=== PATIENT | female | born 1995 | race Caucasian/White ===

== ENCOUNTER 2017-12-20 22:50 | Emergency (ER) | payer SELFPAY ==
--- NOTE | 2017-12-20 23:04 | ER Report ---
History and Physical Time Seen By MD: 22:59 HPI/ROS CHIEF COMPLAINT: Fall downstairs, left wrist pain HISTORY OF PRESENT ILLNESS: 22-year-old female presents ambulatory to the ER complaining of severe left wrist pain. She states she fell forward down approximately 7 concrete stairs. She broke most of her fall with her left hand. She didn't impact her head. She denies LOC or neck pain. There is no facial trauma or bruising noted. Patient denies vomiting or headache. Patient notes some scrapes to her lower legs. She denies chest, abdomen or pelvic injury. She notes 9/10 throbbing pain in her left wrist aggravated by movement. REVIEW OF SYSTEMS: Respiratory: No cough, no dyspnea. Cardiovascular: No chest pain, no palpitations. Gastrointestinal: No vomiting, no abdominal pain. Musculoskeletal: As above Allergies: Coded Allergies: No Known Drug Allergies (Unverified , 12/20/17) Home Meds Active Scripts Hydrocodone Bit/Acetaminophen (NORCO 5-325 TABLET) 1 Each Tablet, 1-2 EACH PO Q4H Y for PAIN, #20 TAB Prov:RAEGAN EVANS DO 12/20/17 Reported Medications Loratadine (LORATADINE) 10 Mg Tab.rapdis, 10 MG PO 12/20/17 Omeprazole Magnesium (PRILOSEC OTC) 20 Mg Tablet., 1 TAB PO BID, TAB 12/20/17 Reviewed Nurses Notes: Yes Old Medical Records Reviewed: Yes Constitutional Vital Sign - Last 24 Hours 12/20/17 12/20/17 12/20/17 12/20/17 22:55 22:56 23:00 23:30 Temp 98.7 Pulse 108 Resp 18 B/P (MAP) 126/86 (99) 126/86 129/83 (98) 133/88 (103) Pulse Ox 98 O2 Delivery Room Air 12/21/17 00:00 B/P (MAP) 131/91 (104) Physical Exam General Appearance: The patient is alert, has no immediate need for airway protection and no current signs of toxicity. Palpation of the head and neck reveal no tenderness or trauma Eyes: Pupils equal and round no injection. Respiratory: Chest is non tender, lungs are clear to auscultation. No chest wall tenderness Cardiac: regular rate and rhythm Gastrointestinal: Abdomen is soft and non tender, no masses, bowel sounds normal. Musculoskeletal: Neck: Neck is supple and non tender. Extremities have full range of motion and are non tender. Examination of left upper trauma to reveals a grossly swollen left wrist which is extremely tender to palpation. All distal digits are neurovascularly intact. There is significant decreased range of motion at the wrist. Skin: No rashes or lesions. DIFFERENTIAL DIAGNOSIS: After history and physical exam differential diagnosis was considered for sprain, strain, fracture, dislocation, contusion. Additionally,head injury including but not limited to concussion, skull fracture , intraparenchymal contusion, subarachnoid, subdural and epidural hematoma. Medical Decision Making EKG/Imaging Imaging X-ray: Left wrist, 3 views was obtained. I viewed the images myself on the PACS system. My interpretation of the images is: Comminuted inter-articular distal radius fracture. The radiologist interpretation had no clinically significant variation from this interpretation. ED Course/Re-evaluation ED Course Patient was admitted to an examination room. H&P was done. The differential diagnoses was considered. On clinical examination. Patient has isolated injuries to her left wrist and superficial abrasions on her shins. Patient's medicated for pain in her left wrist. She took Tylenol at home without improvement. She's given oxycodone 5 mg and Motrin 600 mg. Diagnostic x-rays show an obvious distal radius fracture. There is minimal displacement of the fragments. It is not interarticular. Patient's placed in Ortho-Glass splint of her left arm. Patient's given information to follow up with Dr. Augustine orthopedics surgery for casting. She is advised to follow-up early next week after the swelling has gone down. Patient's given hydrocodone prescription for pain relief. She's also advised to take ibuprofen 600 mg 3 times daily. Decision to Disposition Date: Dec 20, 2017 Decision to Disposition Time: 23:53 Depart Departure Latest Vital Signs Vital Signs Date Time Temp Pulse Resp B/P (MAP) Pulse Ox O2 Delivery O2 Flow Rate FiO2 12/21/17 00:00 131/91 (104) 12/20/17 22:56 98.7 108 18 98 Room Air Impression: Primary Impression: Fall with injury Additional Impression: Fracture of left radius Condition: Improved Disposition: HOME OR SELF-CARE Referrals: JACKIE AUGUSTINE MD New Scripts Hydrocodone Bit/Acetaminophen (NORCO 5-325 TABLET) 1 Each Tablet 1-2 EACH PO Q4H Y for PAIN, #20 TAB Prov: RAEGAN EVANS DO 12/20/17 Patient Instructions: Wrist Fracture in Adults (ED) Additional Instructions: Take ibuprofen 200 mg 3-4 tablets 3 times a day with food Keep her arm elevated and ice applied to the affected area Do not take any extra Tylenol since the hydrocodone pain pills have Tylenol mixed with them Call on morning for an appointment to follow up with [facility] next week for casting Problem Qualifiers Primary Impression: Fall with injury Encounter type: initial encounter Qualified Codes: W19.XXXA - Unspecified fall, initial encounter Additional Impression: Fracture of left radius Encounter type: initial encounter Radius location: distal Fracture type: closed Fracture morphology: other intra-articular Qualified Codes: S52.572A - Other intraarticular fracture of lower end of left radius, initial encounter for closed fracture RAEGAN EVANS DO Dec 20, 2017 23:04
[2017-12-20] MEDS ORDERED: oxyCODONE HCL 5 MG CAP PO ONE (23:05)
[2017-12-20] MEDS ORDERED: IBUPROFEN 600 MG TAB PO ONE (23:05)
[2017-12-20] MEDS ORDERED: OMEP-218 PO (23:07)
[2017-12-20] MEDS ORDERED: LORA-788 PO (23:07)
--- NOTE | 2017-12-20 23:47 | RADIOLOGY IMAGING REPORT ---
FACILITY: [facility] - [place] PATIENT NAME: Macarena Henning : 1995 MR: [id number] V: [id number] EXAM DATE: ORDERING PHYSICIAN: RAEGAN EVANS TECHNOLOGIST: [place] [facility] [place] Patient: Macarena Henning : 1995 Visit/Account:[id number] Date of Sevice: 12/20/2017 LEFT WRIST: Indication: Injury. Technique: 3 views were obtained. Comparison: None. Findings: There is a comminuted fracture through the distal radius, with extension to the articular s urface. There is minimal displacement of the fracture fragments. The distal ulna appears intact. The carpal bones are intact, and there is no evidence of dislocation. There is periarticular soft tissue swelling. IMPRESSION: Comminuted fracture of the distal left radius. Report Dictated By: Destin Daugherty MD at 12/20/2017 11:40 PM Report E-Signed By: Destin Daugherty MD at 12/20/2017 11:43 PM WSN:[id number]
[2017-12-20] MEDS ORDERED: ACET/HYDROC 5/325MG TH ER ONLY 2 TAB/BOTTLE PO ONE ×3 (23:55)
[2017-12-20] MEDS ORDERED: HYDR-4309 PO (23:56)
[2017-12-21] VITALS: BP 131/91
== END 2017-12-21 00:20 | disposition home or self-care (01) ==
LOC: ER 23:03
DX: S52.572A Other intraarticular fracture of lower end of left radius, initial encounter for closed fracture (principal); W10.9XXA Fall (on) (from) unspecified stairs and steps, initial encounter
CPT/HCPCS: 99283